=== PATIENT | male | born 1975 ===

== ENCOUNTER 2017-05-19 11:04 | Day surgery (SDC) | payer MEDICARE, OTHER ==
[2017-05-19] VITALS (8 sets, daily range): BP systolic 109–125; BP diastolic 64–88
[~2017-05-19] VITALS: Ht 180.3 cm; Wt 104.3 kg
[2017-05-19] MEDS ORDERED: NKM (11:44)
[2017-05-19] MEDS ORDERED: Bupivacaine 0.5% Inj 30 ml vial INJ ONE (12:27)
[2017-05-19] MEDS ORDERED: Lidocaine 1% 10mg/ml/Epi 0.005mg/ml 30ml vial INJ ONE (12:27)
[2017-05-19] MEDS ORDERED: Propofol 200mg/20ml IV ONE (13:00)
[2017-05-19] MEDS ORDERED: LR 1000ml ONE (13:00)
[2017-05-19] MEDS ORDERED: Lidocaine 1% MPF 10mg/ml 5ml ONE (13:00)
[2017-05-19] MEDS ORDERED: NS Irrig 4000ml IRRIG ONE (13:00)
[2017-05-19] MEDS ORDERED: fentaNYL 100 mcg/2 mL IV ONE (13:00)
[2017-05-19] MEDS ORDERED: Dexamethasone 4mg/ml vial ONE (13:00)
[2017-05-19] MEDS ORDERED: LR 1000ml 1,000 ML IVLG SCH (13:06)
--- NOTE | 2017-05-19 13:14 | Anethesia Preoperative Eval ---
Anesthesia Pre-op PMH/ROS General Date of Evaluation: May 19, 2017 Time of Evaluation: 13:19 Anesthesiologist: Leah ASA Score: ASA 3 Mallampati Score Class I : Soft palate, uvula, fauces, pillars visible Class II: Soft palate, uvula, fauces visible Class III: Soft palate, base of uvula visible Class IV: Only hard plate visible Mallampati Classification: Class II Surgeon: Chapito Diagnosis: L Knee Pain Surgical Procedure: L Knee Arthroscopy Anesthesia History: none Family History: no anesthesia problems Allergies: Coded Allergies: No Known Allergies (Unverified , 05/19/17) Medications: see eMAR Past Medical History Pulmonary: Reports: 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 Exam Physician Exam Last Vital Signs Date Time Temp Pulse Resp B/P (MAP) Pulse Ox O2 Delivery O2 Flow Rate FiO2 05/19/17 11:35 98.6 81 17 125/75 98 Room Air Constitutional: NAD Neurologic: CN 2-12 intact Cardiovascular: RRR Respiratory: CTA Gastrointestinal: S/NT/ND Airway Exam Mallampati Score: Class II MO: full ROM: full Teeth: intact Anesthesia Pre-op A/P Risk Assessment & Plan Assessment: ASA 3 Plan: GA, BIS, Glidescope Status Change Before Surgery: No Pre-Antibiotics Dru Grams Ancef IV Given Within 1 Hr of Incision: Yes Time Given: 13:31 Erick Lynn MD May 19, 2017 13:13
[2017-05-19] MEDS ORDERED: Ketorolac 60mg Inj IV PRN (13:15)
[2017-05-19] MEDS ORDERED: Hydromorphone 0.5mg/0.5ml inj IVP PRN (13:15)
[2017-05-19] MEDS ORDERED: DiphenhydrAMINE 50mg/ml Inj IVP PRN (13:15)
[2017-05-19] MEDS ORDERED: Norco 7.5mg/325mg tab ORAL PRN (13:15)
[2017-05-19] MEDS ORDERED: Norco 5mg/325mg tab ORAL PRN (13:15)
[2017-05-19] MEDS ORDERED: fentaNYL 100 mcg/2 mL IV PRN (13:15)
[2017-05-19] MEDS ORDERED: Midazolam 2mg/2ml Inj IVP PRN (13:15)
[2017-05-19] MEDS ORDERED: Ketorolac 30mg Inj IV PRN (13:15)
[2017-05-19] MEDS ORDERED: LORazepam Inj 2mg/ml 1ml IV PRN (13:15)
[2017-05-19] MEDS ORDERED: Metoclopramide 10mg/2ml Inj IVP PRN (13:15)
[2017-05-19] MEDS ORDERED: oxyCODONE HCL/Acetaminophen 5/325mg ORAL PRN (13:15)
[2017-05-19] MEDS ORDERED: Atropine Inj 1mg/10ml Syr IV PRN (13:15)
--- NOTE | 2017-05-19 13:15 | Immediate Post-Op Evaluation ---
Immediate Post-Op Evalulation Immediate Post-Op Evalulation Procedure: L Knee Arthroscopy Date of Evaluation: May 19, 2017 Time of Evaluation: 15:10 IV Fluids: 700 LR Blood Products: 0 Estimated Blood Loss: 7 Urinary Output: 0 Blood Pressure Systolic: 112 Blood Pressure Diastolic: 65 Pulse Rate: 90 Respiratory Rate: 16 O2 Sat by Pulse Oximetry: 100 Temperature (Fahrenheit): 97.9 Pain Score (1-10): 2 Nausea: No Vomiting: No Complications 0 Patient Status: awake, reacts, patent, none Hydration Status: adequate Dru Grams Ancef IV Given Within 1 Hr of Incision: Yes Time Given: 13:31 Erick Lynn MD May 19, 2017 13:15
--- NOTE | 2017-05-19 13:16 | 48 Hour Post Anesthesia Eval ---
Post Anesthesia Evaluation Procedure: L Knee Arthroscopy Date of Evaluation: May 19, 2017 Time of Evaluation: 17:13 Blood Pressure Systolic: 113 0: 67 Pulse Rate: 78 Respiratory Rate: 18 Temperature (Fahrenheit): 98.3 O2 Sat by Pulse Oximetry: 100 Airway: patent Nausea: No Vomiting: No Pain Intensity: 2 Hydration Status: adequate Cardiopulmonary Status: Stable Mental Status/LOC: patient returned to baseline Follow-up Care/Observations: 0 Post-Anesthesia Complications: 0 Follow-up care needed: ready to discharge Erick Lynn MD May 19, 2017 13:16
--- NOTE | 2017-05-19 13:21 | Pre-Procedure Note/Attestation ---
Pre-Procedure Note/Attestation Complete Prior to Procedure Planned Procedure: left Procedure Narrative: left knee arthrocopy, removal of loose body and any other procedure as indicated , possile open procedure Indications for Procedure Pre-Operative Diagnosis: left knee loose body Attestation I attest that I discussed the nature of the procedure; its benefits; risks and complications; and alternatives (and the risks and benefits of such alternatives ), prior to the procedure, with the patient (or the patient's legal fulfillment representative). I attest that, if there was a reasonable possibility of needing a blood transfusion, the patient (or the patient's legal fulfillment representative) was given the [facility] standardized written summary, pursuant to the [place] Bro Blood Safety Act ([place] Health and Safety Code # 1645, as amended). I attest that I re-evaluated the patient just prior to the surgery and that there has been no change in the patient's H&P, except as documented below: JAZZY STANLEY May 19, 2017 13:21
--- NOTE | 2017-05-19 20:15 | Operative Note - Dictated ---
DATE OF OPERATION: 05/19/2017 SURGEON: Wilfredo Uriarte M.D. ANESTHESIOLOGIST: Erick Lynn M.D. PREOPERATIVE DIAGNOSIS: Left knee loose body. POSTOPERATIVE DIAGNOSES: 1. Left knee anterior synovitis. 2. Left knee floating loose body. PROCEDURE: 1. Left knee diagnostic arthroscopy. 2. Left knee arthroscopic anterior synovectomy. 3. Left knee arthrotomy with removal of loose body. COMPLICATIONS: None. INTRAOPERATIVE MEDICATIONS: A 2 g of intravenous Ancef preoperatively and approximately 10 mL mixture of 0.25% Marcaine, 2% Xylocaine with epinephrine injected intra-articularly for postoperative pain management. PNEUMATIC TOURNIQUET TIME: Approximately 45 minutes. DETAILS OF PROCEDURE: The patient was taken to the operating room, placed supine on the operative table. After adequate general anesthesia, the left lower extremity was prepped and draped in the usual fashion. The left lower extremity was then elevated, exsanguinated, and pneumatic tourniquet was inflated to 275. Examination of left knee under general anesthesia revealed no ligamentous instability. An anterior lateral portal was made and the arthroscope was inserted into the suprapatellar pouch. The medial gutter as well as the underneath surface of the patella was inspected and was found to be unremarkable. At the beginning of the procedure, the lateral suprapatellar pouch was inspected, which revealed no evidence of loose body as it will following after the anterior synovectomy, there revealed a rather large loose body in the lateral gutter. The arthroscope was then inserted into the medial joint line and through an anteromedial portal, the medial meniscus was probed and was found to be intact without any tears. There was evidence of significant synovitis in the anterior compartment, which required extensive anterior synovectomy. Using a shaver and electrocautery, anterior synovectomy was performed. As at the beginning of the procedure, the loose body was not visible, the ligamentum mucosum was removed with the hope that the loose body may be under the ligamentum mucosum, however, there revealed no loose body at this time. The anterior cruciate ligament was identified and was found to be intact. The scope was then moved to the lateral compartment and the lateral joint and the lateral meniscus was visualized and was found to be intact with probing. When the scope was moved to the anterolateral joint there revealed rather large loose body, which appeared cartilaginous in nature. The loose body was behind the synovium and the synovium was removed and the loose body travelled to the lateral gutter. A small arthrotomy incision was made laterally and with a grasper, the loose body was grabbed and removed. The loose body was sent to laboratory for pathological examination. The joint was thoroughly irrigated with normal saline solution. All debris were removed. The two arthroscopic portals and the arthrotomy site was closed using 3-0 nylon sutures. Sterile dressing was applied. The knee joint was injected with 10 mL mixture of 0.25% Marcaine and 2% Xylocaine with epinephrine. A compressive dressing was applied. The left lower extremity was wrapped with 6-inch JEN from the thigh to toe. Pneumatic tourniquet was deflated at this time. Total pneumatic tourniquet time was approximately 45 minutes. The patient was awakened and tolerated the procedure well on to recovery room. Wilfredo Uriarte M.D. DR: Toby JOB#: [id number] CC:
== END 2017-05-19 13:04 | disposition home or self-care (01) ==
LOC: SUR 11:04
DX: M65.9 Synovitis and tenosynovitis, unspecified (principal); M23.42 Loose body in knee, left knee; Z85.47 Personal history of malignant neoplasm of testis; Z86.711 Personal history of pulmonary embolism; E66.9 Obesity, unspecified; Z68.32 Body mass index [BMI] 32.0-32.9, adult
CPT/HCPCS: 29876; 97163; G8978; G8979; G8980; J0690; J1100; J2250; J2405; J2704; J3010; J3490; J7120; 94003; 94150